=== PATIENT | female | born 1990 | race Caucasian/White ===

== ENCOUNTER → 2016-11-10 | Outpatient (CLI) | payer BC | LOC: MOB LAB 09:05 | PROVIDERS: ATTEND Student in an Organized Health Care Education/Training Program | DX: N92.6 Irregular menstruation, unspecified (principal) | CPT/HCPCS: 36415; 82670; 83001; 83520; 84146; 84443 ==

== ENCOUNTER → 2016-11-16 | Outpatient (CLI) | payer BC ==
--- NOTE | 2016-11-16 15:39 | DI ---
US PELVIC COMPLETE (NON OB),11/16/2016 1:56 PM: Clinical History: Irregular menses Previous Exam: None at this facility. Findings: Multiple transabdominal grayscale and color Doppler sonographic images are obtained through the pelvi s, and demonstrate a normal-appearing uterus measuring 9.0 x 5.6 x 3.9 cm. The endometrial stripe david sures 9 mm. The right ovary measures 3.5 x 2.4 x 2.6 cm and the left ovary measures 3.5 x 2.8 x 2.4 cm with alessandra l Doppler flow. There are few bilateral maturing follicles. There is one within the left ovary measured 2.6 x 1.7 x 1.6 cm. Impression: Normal pelvic ultrasound.
== END ==
LOC: US 13:51
PROVIDERS: ATTEND Student in an Organized Health Care Education/Training Program
DX: N92.6 Irregular menstruation, unspecified (principal)
CPT/HCPCS: 76856